=== PATIENT | female | born 1970 | race Caucasian/White ===

== ENCOUNTER 2017-10-03 10:09 | Emergency (ER) | payer MEDICAID ==
[~2017-10-03] VITALS: Ht 134.6 cm; Wt 64.0 kg
[~2017-10-03 10:09] MED LIST: ADVIL
[2017-10-03 10:15] VITALS: BP 104/52
== END 2017-10-03 12:25 | disposition home or self-care (01) ==
LOC: ER 10:53
DX: B02.9 Zoster without complications (principal)
CPT/HCPCS: 99281